=== PATIENT | female | born 1970 | race Caucasian/White ===

== ENCOUNTER → 2022-12-04 | Outpatient (CLI) | payer BC ==
--- NOTE | 2022-12-05 23:57 | MR ---
EXAMINATION TYPE: MR knee LT wo con DATE OF EXAM: 12/04/2022 9:07 PM CLINICAL INDICATION:Female, 52 years old with history of M25.562; Left knee pain on and off for 12 m [facility] patient reports pain is in the inner aspect. COMPARISON: None TECHNIQUE: Multi planar, multi sequence imaging was performed of the knee including: Triplane proton density fat-saturated images and T1-weighted imaging. No Gadolinium was given. IV Contrast: cc (none if empty) FINDINGS: Medial meniscus: Intact Medial femorotibial cartilage: Intact Medial collateral ligament: High PD signal is seen in the superficial aspect of the medial collat eral ligament. Lateral meniscus: Intact Lateral femorotibial cartilage: Intact Lateral collateral ligament complex: Intact, there is a thickened appearance with increased signa l on coronal imaging series 501 image 22. Patellofemoral alignment: Normal Patellofemoral cartilage: Intact Extensor mechanism: Intact. Musculature: Bone signal corresponding high T1 signal with corresponding high PD signal within the pa tellar tendon and the quadriceps tendon near their insertion onto the patella. The patellar tendon, q uadriceps tendon, IT band, pes anserinus tendons, semimembranosus tendon, popliteus tendon, and bicep s femoris tendon are all within normal limits. Anterior cruciate ligament: Diminished caliber to the proximal ACL fibers at the femoral attachme nt, sagittal series 401 image 15. Posterior cruciate ligament: Intact with Increase T1 and T2 signal present. Bone marrow: High PD signal seen within the medial tibial plateau and metaphysis. Best appreciate d on series 501 image 15. Joint/bursal fluid: None. Soft tissues: Multilocular ganglion cyst arising from the origin of the medial head gastrocnemius spanning up to 2.7 cm and extending into the popliteal fossa, coronal series 501 image 23. Lateral s treaky high PD signal edema within the soft tissues/subcutaneous tissues. Nonspecific mild edema with in the lower quadriceps musculature, axial image 38, nonspecific, possible mild muscle strains. IMPRESSION: 1. Focal bone bruise along the anteromedial aspect of the tibial plateau. 2. The menisci are intact. 3. Diminished caliber to the proximal ACL fibers at the femoral attachment. Findings suggest a parti al tear. 4. Some intermediate signal within the midportion of the PCL suggesting mild sprain. 5. Edema overlying the MCL compatible with grade 1 sprain. 6. Remote Low-grade injury to the fibular collateral ligament. 7. Multilocular ganglion cyst arising from the origin of the medial head gastrocnemius spanning up t o 2.7 cm and extending into the popliteal fossa, coronal series 501 image 23. 8. Patellar tendinosis.
== END | disposition home or self-care (01) ==
LOC: RADMRIMAIN 20:15
PROVIDERS: ATTEND Orthopaedic Surgery
DX: S83.411A Sprain of medial collateral ligament of right knee, initial encounter (principal); M67.462 Ganglion, left knee; M76.51 Patellar tendinitis, right knee; X58.XXXA Exposure to other specified factors, initial encounter

== ENCOUNTER → 2023-09-26 | Outpatient (CLI) | payer BC ==
[2023-09-27 02:34] LABS: Basophils # (A) 0.07 X 10*3/uL (0.00-0.10); Basophils % (A) 0.8 %; Eosinophils # (A) 0.29 X 10*3/uL (0.04-0.35); Eosinophils % (A) 3.3 %; HCT 39.2 % (37.2-46.3); HGB 12.7 g/dL (12.0-15.0); Lymphocytes # (A) 2.85 X 10*3/uL (0.90-5.00); Lymphocytes % (A) 32.5 %; MCH 30.9 pg (27.0-32.0); MCHC 32.4 g/dL (32.0-37.0); MCV 95.4 FL (80.0-97.0); Mean Platelet Volume 9.6 FL (9.5-12.2); Monocytes # (A) 0.58 X 10*3/uL (0.20-1.00); Monocytes % (A) 6.6 %; NRBC Per 100 WBC 0 X 10*3/uL (0.00-0.01); Neutrophils # (A) 4.95 X 10*3/uL (1.80-7.70); Neutrophils % (A) 56.6 %; Platelet Count 274 X 10*3/uL (140-440); RBC 4.11 X 10*6/uL (4.10-5.20); RDW 12.1 % (11.5-14.5); WBC 8.76 X 10*3/uL (4.50-10.00)
[2023-09-27 02:53] LABS: Anion Gap 12.1 mmol/L (4.00-12.00); Carbon Dioxide 25.9 mmol/L (21.6-31.8); Potassium 4.2 mmol/L (3.5-5.5)
== END | disposition home or self-care (01) ==
LOC: LABPAT 15:47
PROVIDERS: ATTEND Orthopaedic Surgery Hand Surgery
DX: Z01.812 Encounter for preprocedural laboratory examination (principal); G56.01 Carpal tunnel syndrome, right upper limb
CPT/HCPCS: 36415; 80051; 85025

== ENCOUNTER 2023-10-03 06:22 | Day surgery (SDC) | payer BC ==
[2023-09-26 16:27] VITALS: BMI 23.5
--- NOTE | 2023-10-02 11:00 | P.HPOR ---
History of Present Illness H&P Date: 10/02/23 Subjective: This is a 53 year old female that presents today for initial evaluation regarding a several year history of progressively worsening right hand paresthesias in the thumb, index, middle and ring fingers. The patient has tried steroid injections which the most recent was performed on 07/31/23 and she only got minor relief from her symptoms. They deny any inciting event or neck pain. Physical Examination: RUE: AIN/PIN/Radial/Ulnar/Median motor intact. Radial/Ulnar/Median SILT. 2+/4 Radial/Ulnar pulses palpated. 5/5 APB, 5/5 FDI. Negative Finkelsteins, negative CMC grind, positive Durkan's compression. Impression: 1.) Right carpal tunnel syndrome Plan: Diagnosis and treatment options were discussed with the patient. The patient has failed conservative treatment and would like to pursue a right endoscopic vs open carpal tunnel release. Risks and benefits of surgery including bleeding, infection, damage to surrounding tissue, need for further surgery, possible need to convert to open procedure, residual numbness were discussed and the patient wished to go forward with surgery. CC: Aurora Castillo DO Orthopedic Hand/Upper Extremity Surgeon Past Medical History Past Medical History: Diabetes Mellitus Additional Past Medical History / Comment(s): NIDDM History of Any Multi-Drug Resistant Organisms: None Reported Past Surgical History: Tonsillectomy Additional Past Surgical History / Comment(s): Bilat breast reduction,"rt shoulder bursa removed.", . Past Anesthesia/Blood Transfusion Reactions: No Reported Reaction, Motion Sickness, Postoperative Nausea & Vomiting (PONV) Additional Past Anesthesia/Blood Transfusion Reaction / Comment(s): No hx of blood transfusion. Smoking Status: Never smoker - Past Family History Father Family Medical History: No Reported History Medications and Allergies Home Medications Medication Instructions Recorded Confirmed Type DULoxetine HCL [Cymbalta] 60 mg PO QAM 09/27/23 09/27/23 History Meloxicam [Mobic] 15 mg PO QAM 09/27/23 09/27/23 History Semaglutide (Dose Unknown) 1 dose SQ GARZA 09/27/23 09/27/23 History buPROPion [Wellbutrin] 300 mg PO QAM 09/27/23 09/27/23 History metFORMIN HCL [Glucophage] 500 mg PO QAM 09/27/23 09/27/23 History traZODone HCL 150 mg PO HS 09/27/23 09/27/23 History Allergies Allergy/AdvReac Type Severity Reaction Status Date / Time neomycin Allergy "Causes Uncoded 09/26/23 15:57 sores" Physical Examination Osteopathic Statement: *. No significant issues noted on an osteopathic structural exam other than those noted in the History and Physical/Consult.
[~2023-10-03 06:22] MED LIST: Pre Op ABX Message 1 EACH MISC MISCELLANE ONE
[2023-10-03] MEDS ORDERED: MIDAZOLAM 2 MG/2 ML VIAL IV PRN (07:00)
[2023-10-03] MEDS ORDERED: HYDROmorphone 0.5 MG/0.5 ML SYRINGE IVP PRN (07:00)
[2023-10-03] MEDS: LIDOCAINE 1% (10MG/ML) FOR IV START INTRADERMA PRN (07:05)
[2023-10-03] MEDS: LACTATED RINGERS 1,000 ML IV SCH (07:05)
[2023-10-03] MEDS: DEXAMETHASONE SOD PHOSPHATE 4 MG/ML 1 ML VIAL IV ONE (07:05)
[2023-10-03] MEDS: ONDANSETRON 4 MG/2 ML VIAL IVP ONE (07:06)
[2023-10-03] MEDS: BUPIVACAINE (PF) 0.5% 30 ML VIAL SQ ONE ×2 (07:15→07:27)
[2023-10-03] MEDS: LIDOCAINE 2% INJ 20 MG/ML SQ ONE ×2 (07:15→07:27)
[2023-10-03 07:16] LABS: Glucose,Whole Blood 151 mg/dL (70-110)
[2023-10-03] MEDS ORDERED: PROPOFOL 10 MG/ML 20 ML VIAL IV ONE (07:25)
[2023-10-03] MEDS ORDERED: MIDAZOLAM 2 MG/2 ML VIAL ONE (07:25)
[2023-10-03] MEDS ORDERED: fentaNYL (PF) 50 MCG/ML 2 ML AMP ONE (07:25)
[2023-10-03] MEDS ORDERED: LIDOCAINE 1% INJ 10MG/ML (20 ML MDV) ONE (07:25)
--- NOTE | 2023-10-03 07:45 | P.OP ---
Date of Procedure: 10/03/23 Preoperative Diagnosis: Right carpal tunnel syndrome Postoperative Diagnosis: Right carpal tunnel syndrome Procedure(s) Performed: Right endoscopic carpal tunnel release Anesthesia: MAC Surgeon: Bhupendra Castillo Health Tech #1: Guillermo Rodriguez Pathology: none sent Condition: stable Disposition: PACU Description of Procedure: This is a 53 year old female who presents today for a right endoscopic carpal tunnel release after having failed conservative treatment in the past. Risks and benefits of surgery were discussed with the patient including bleeding, damage to surrounding tissue, infection, need to convert to open procedure, need for further surgery as well as risks of anesthesia including pulmonary embolism and even and the patient wished to proceed with surgical intervention. The patients was seen in the pre-operative area by myself. Consent and H&P were completed and updated. The correct extremity was marked in the pre-operative area by myself and all other questions were answered. Operative Narrative: The patient was brought to the operating room by the department of anesthesia. They remained on the portable stretcher and a rolling hand table was brought to the side of the operative extremity. Pre-operative time out was performed indicating the correct patient, procedure and laterality. All in the room agreed. The patient was then drifted off to sleep by the department of anesthesia. MAC anesthesia was utilized and a 50:50 mixture of 1% Lidocaine and 0.5% bupivacaine was injected into the subcutaneous tissues of the palmar skin, 8ccs total. A nonsterile tourniquet was then applied to the operative extremity and the right upper extremity was then prepped and draped in normal sterile fashion. The operative extremity was the exsanguinated with an esmarch bandage and the tourniquet was inflated to 250mmHg. 15 blade scalpel was utilized to make a transverse incision on the palmar skin just ulnar to the palmaris longus tendon at the level of the distal wrist crease. Ragnell retractor was then placed radially and blunt dissection was performed to reveal the distal forearm fascia. This was lifted with fine Teddy pick ups and Littler tenotomy scissors were then used to open the forearm fascia transversely and a double skin hook was then placed. Hamate finder was placed into the carpal tunnel and then sequential sized dilators were inserted followed by the synovial elevator to separate the flexor tenosynovium from the undersurface of the transverse carpal ligament and a washboard texture was felt. The Micro[employer]ire endoscopic carpal tunnel release system gun was the then inserted into the carpal tunnel hugging the deep portion of the transverse carpal ligament in line with the base of the ring finger. Transverse fibers of the ligament were directly visualized. Pressure was applied on the palm to reveal the distal extent of the transverse carpal ligament. The blade was then deployed and the distal half of the transverse carpal ligament was released. The scope was then brought distal again and remaining transverse fibers were incised with the blade. The proximal half of the transverse carpal ligament was then divided and again the scope was advanced distal and remaining transverse fibers were incised with the blade. The radial and ulnar leaflets were directly visualized and mobile consistent with complete release. Tenotomy scissors were then utilized to release the remaining distal forearm fascia under direct visualization taking care to preserve the palmar cutaneous branch of the median nerve. Skin closure was performed with interrupted 4-0 Monocryl suture followed by steri strips. Sterile dressing was applied consisting 4x4s, Webril, and an cassidy bandage. Tourniquet was let down and the hand immediately was well perfused. The patient was then woken by the department of anesthesia and transferred to PACU in stable condition. Guillermo MALONEY was present for the case in its entirety and assisted in major portions of the case and protection of vital neurovascular structures. Bhupendra Castillo D.O. Orthopedic Hand/Upper Extremity Surgeon
[2023-10-03 07:59] LABS: Glucose,Whole Blood 140 mg/dL (70-110)
[2023-10-03 08:34] VITALS: TEMP 97
[2023-10-03 09:15] VITALS: BP 139/70; PULSE 79; RESP 18
== END 2023-10-03 09:24 | disposition home or self-care (01) ==
LOC: OR 06:22
PROVIDERS: ATTEND Orthopaedic Surgery Hand Surgery
DX: G56.01 Carpal tunnel syndrome, right upper limb (principal); F32.A Depression, unspecified; E11.9 Type 2 diabetes mellitus without complications; Z79.84 Long term (current) use of oral hypoglycemic drugs; Z90.89 Acquired absence of other organs; Z98.891 History of uterine scar from previous surgery; Z88.1 Allergy status to other antibiotic agents; Z98.890 Other specified postprocedural states; Z79.899 Other long term (current) drug therapy
CPT/HCPCS: 29848; J2001 ×2; J2250; J1100; J2405; J3010; J2704; J0665